=== PATIENT | female | born 1985 | race Two or more races ===

== ENCOUNTER 2017-10-30 19:39 | Emergency (ER) | payer OTHER ==
[~2017-10-30] VITALS: Ht 165.1 cm; Wt 124.2 kg
[~2017-10-30 19:39] MED LIST: BUTALBITAL-APA1 EACH PO; COLACE100 MG PO; FLEXERIL5 MG PO; FLONASE16 G1 BOTH NARES; Fioricet,Esgic,Repan PO; GABAPENTIN300 MG PO; IBUPROFEN800 MG PO; LOESTRIN 241 TABLET PO; MOTRIN800 MG PO; MUCUS RELIEF600 MG PO; Motrin PO; NATALCARE RX1 TABLET PO; NYSTATIN100000 UN1 PO; OXYCODONE HCL5 MG PO; PERCOCET 5/31 TABLET PO; PREDNISONE20 MG PO; PRENATABS FA T1 EACH PO; PRENATAL VITAM1 EAC3 PO; Percocet 5/325,Endoc PO; TAMIFLU75 MG PO; TYLENOL WITH C1 EACH PO; VICODIN 5-3001 EACH PO; ZANTAC150 MG PO; ZANTAC75 M1 PO; ZITHROMAX Z-PA250 MG PO; ZOFRAN4 MG PO; [UNRECOGNIZED DRUG - OTHER]
[2017-10-30] MEDS ORDERED: PEN-VEE K,VEET500 MG PO (23:45)
[2017-10-30] MEDS ORDERED: NAPROSYN500 MG PO (23:45)
[2017-10-31 00:35] VITALS: BP 119/90
== END 2017-10-31 00:36 | disposition home or self-care (01) ==
LOC: EME 19:39
PROC: 3E0T3BZ Introduction of Anesthetic Agent into Peripheral Nerves and Plexi, Percutaneous Approach (ICD-10-PCS; principal; 2017-10-30)
DX: S80.02XA Contusion of left knee, initial encounter (principal); W00.0XXA Fall on same level due to ice and snow, initial encounter; K04.7 Periapical abscess without sinus
CPT/HCPCS: 73564; 73590; 99281; 99284

== ENCOUNTER 2017-11-20 05:25 | Emergency (ER) | payer OTHER ==
[~2017-11-20] VITALS: Ht 165.1 cm; Wt 123.9 kg
[~2017-11-20 05:25] MED LIST changes: +NAPROSYN500 MG PO; +PEN-VEE K,VEET500 MG PO
[2017-11-20] MEDS ORDERED: ULTRAM50 MG PO (06:37)
[2017-11-20 07:03] VITALS: BP 165/97
== END 2017-11-20 07:06 | disposition home or self-care (01) ==
LOC: EME 05:25
DX: M25.562 Pain in left knee (principal); F17.200 Nicotine dependence, unspecified, uncomplicated; Z88.6 Allergy status to analgesic agent; Z88.5 Allergy status to narcotic agent
CPT/HCPCS: 99281; 99283

== ENCOUNTER 2017-12-02 09:26 | Emergency (ER) | payer OTHER ==
[~2017-12-02] VITALS: Ht 165.1 cm; Wt 122.6 kg
[~2017-12-02 09:26] MED LIST changes: +ULTRAM50 MG PO
[2017-12-02 09:41] VITALS: BP 105/66
[2017-12-02] MEDS ORDERED: AMOXICILLIN500 MG PO (10:32)
[2017-12-02] MEDS ORDERED: MOTRIN600 MG PO (10:41)
== END 2017-12-02 11:15 | disposition home or self-care (01) ==
LOC: EME 09:26
PROC: 3E0T3BZ Introduction of Anesthetic Agent into Peripheral Nerves and Plexi, Percutaneous Approach (ICD-10-PCS; principal; 2017-12-02)
DX: K02.9 Dental caries, unspecified (principal); F17.200 Nicotine dependence, unspecified, uncomplicated; Z91.030 Bee allergy status; Z88.6 Allergy status to analgesic agent; Z88.5 Allergy status to narcotic agent
CPT/HCPCS: 99281; 99283